=== PATIENT | male | born 1990 | race Caucasian/White ===

== ENCOUNTER 2019-05-07 13:49 | Emergency (ER) | payer MEDICAID ==
[2019-05-07] MEDS: ACETAMINOPHEN 500 MG TAB PO (16:14)
== END 2019-05-07 17:00 | disposition home or self-care (01) ==
LOC: FTE 13:49
DX: M54.9 Dorsalgia, unspecified (principal); M79.672 Pain in left foot
CPT/HCPCS: 73630; 73630-LT; 99283-25